=== PATIENT | male | born 1995 | race American Indian/Alaskan Native ===

== ENCOUNTER 2016-11-30 09:06 | Observation (INO) | payer OTHER ==
[2016-11-30 09:10] VITALS: BP 150/71; PULSE 75; TEMP 97; O2SAT 100; BMI 19.5
[2016-11-30 09:22] VITALS: RESP 18
--- NOTE | 2016-11-30 09:40 | ED PDOC ---
HPI: General Adult Time Seen by Provider: 11/30/16 09:37 Chief Complaint (Nursing): Abdominal Pain Chief Complaint (Provider): epigastric pain History Per: Patient History/Exam Limitations: no limitations Additional Complaint(s): 21yo male with hx of GERD, noncompliant with meds, complaining of epigastric abdominal pain and vomiting that started last night. He reports that he has had similar episodes in the past with negative endoscopy by outpatient GI. Patient states that this episode began with abdominal pain and then he started to vomit. Denies diarrhea/constipation, urinary symptoms, testicular pain, back pain. Past Medical History Reviewed: Historical Data, Nursing Documentation, Vital Signs Vital Signs: Last Vital Signs Temp 97 F L 11/30/16 09:19 Pulse 75 11/30/16 09:19 Resp 18 11/30/16 09:19 BP 150/71 11/30/16 09:19 Pulse Ox 100 11/30/16 14:28 - Medical History PMH: GERD - Surgical History Surgical History: No Surg Hx - Family History Family History: States: Unknown Family Hx - Social History Drugs: Denies - Immunization History Hx Tetanus Toxoid Vaccination: No Hx Influenza Vaccination: No Hx Pneumococcal Vaccination: No - Home Medications Home Medications: Ambulatory Orders Medication Instructions Recorded Ondansetron ODT [Zofran ODT] 4 mg PO Q12 #10 odt 06/27/16 Ciprofloxacin HCl [Cipro] 500 mg PO BID #0 tablet 06/30/16 Metronidazole [Flagyl] 500 mg PO Q8 #0 tablet 06/30/16 Famotidine [Pepcid] 20 mg PO DAILY #20 tab 07/18/16 Dicyclomine [Bentyl] 20 mg PO QID #20 tab 07/19/16 - Allergies Allergies/Adverse Reactions: Allergies Allergy/AdvReac Type Severity Reaction Status Date / Time No Known Allergies Allergy Verified 11/30/16 09:19 Review of Systems ROS Statement: Except As Marked, All Systems Reviewed And Found Negative Constitutional: Negative for: Fever, Chills Cardiovascular: Negative for: Chest Pain, Palpitations, Paroxysmal Noc. Dyspnea , Edema Respiratory: Negative for: Cough, Shortness of Breath, SOB with Exertion, Wheezing Gastrointestinal: Positive for: Nausea, Vomiting, Abdominal Pain. Negative for : Diarrhea, Constipation Genitourinary Male: Negative for: Dysuria, Frequency, Hematuria Musculoskeletal: Negative for: Neck Pain, Shoulder Pain, Back Pain Physical Exam - Reviewed Nursing Documentation Reviewed: Yes Vital Signs Reviewed: Yes - Physical Exam Appears: Positive for: Well, Non-toxic, No Acute Distress Head Exam: Positive for: ATRAUMATIC, NORMAL INSPECTION, NORMOCEPHALIC Skin: Positive for: Warm, Dry Eye Exam: Positive for: EOMI, PERRL ENT: Positive for: Other (moist mucous membranes). Negative for: Pharyngeal Erythema, Tonsillar Exudate Cardiovascular/Chest: Positive for: Regular Rate, Rhythm Respiratory: Positive for: Normal Breath Sounds. Negative for: Rales, Rhonchi, Wheezing Gastrointestinal/Abdominal: Positive for: Soft, Tenderness (scant epigastric tenderness). Negative for: Guarding, Rebound Back: Negative for: L CVA Tenderness, R CVA Tenderness Extremity: Positive for: Normal ROM Neurologic/Psych: Positive for: Alert, Oriented - Laboratory Results Result Diagrams: 11/30/16 10:35 11/30/16 10:35 - ECG O2 Sat by Pulse Oximetry: 100 (RA) Pulse Ox Interpretation: Normal Medical Decision Making Medical Decision Makin: Labs, pepcid, zofran, IV fluids ordered 11:55 Labs grossly normal, except for phosphorous. Replacement ordered. Patient continues to have additional episodes of vomiting. Additional anti-emetic ordered. P:CT. 3:00PM Will sign out to Dr. Mckeon to follow-up CT and reevaluate Disposition - Clinical Impression Clinical Impression: Abdominal discomfort - Disposition Disposition Time: 15:00 Condition: FAIR Additional Comments - Additional Comments Additional Comments: Scribe Attestation: Documented by Alec Guerrero acting as a scribe for Jennifer Devries MD. Scribe Attestation: All medical record entries made by the Scribe were at my direction and personally dictated by me. I have reviewed the chart and agree that the record accurately reflects my personal performance of the history, physical exam, medical decision making, and the department course for this patient. I have also personally directed, reviewed, and agree with the discharge instructions and disposition.
[2016-11-30] MEDS ORDERED: Iohexol 240 (50 ml) PO STA (10:05)
[2016-11-30] MEDS ORDERED: Iohexol 240 (50 ml) ONE (10:36)
[2016-11-30 10:49] LABS: BASO # 0.1 K/uL (0.0-0.2); BASO % 0.6 % (0.0-2.0); EOS # 0.1 K/uL (0.0-0.7); EOS % 0.9 % (0.0-4.0); HEMATOCRIT 49.9 % (35.0-51.0); LYMPH # 1.6 K/uL (1.0-4.3); MEAN CELL VOLUME 91.5 fl (80.0-94.0); MEAN CORPUSCULAR HEMOGLOBIN 29.9 pg (27.0-31.0); MEAN CORPUSCULAR HGB CONC 32.7 g/dL (33.0-37.0); MEAN PLATELET VOLUME 7.1 fl (7.2-11.7); MONO # 0.6 K/uL (0.0-0.8); MONO % 6.3 % (0.0-10.0); NEUT # 6.5 K/uL (1.8-7.0); NEUT % 74.2 % (50.0-75.0); NRBC % 0.1 % (0.0-0.0); RED CELL DISTRIBUTION WIDTH 13.1 % (11.5-14.5); WHITE BLOOD COUNT 8.8 K/uL (4.8-10.8)
[2016-11-30 10:56] LABS: ALB/GLOB RATIO 1.2 (1.0-2.1); ALKALINE PHOSPHATASE 67 U/L (38-126); ALT/SGPT 19 U/L (21-72); AST/SGOT 30 U/L (17-59); BILIRUBIN,TOTAL 1.3 mg/dl (0.2-1.3); BLOOD UREA NITROGEN 8 mg/dl (9-20); CARBON DIOXIDE 24 mmol/L (22-30); CHLORIDE 106 mmol/L (98-107); GFR AFRICAN-AMERICAN > 60; GLUCOSE,RANDOM 92 mg/dL (75-110); LIPASE 63 U/L (23-300); MAGNESIUM 2.2 MG/DL (1.6-2.3); PHOSPHOROUS 1.5 mg/dl (2.5-4.5); SODIUM 147 mmol/l (132-148); TOTAL PROTEIN 8.2 G/DL (6.3-8.2)
[2016-11-30] MEDS ORDERED: Potassium & Sodium Phosphate PO STA (11:33)
--- NOTE | 2016-11-30 15:05 | ED PDOC ---
- Laboratory Results Result Diagrams: 11/30/16 10:35 11/30/16 10:35 - ECG O2 Sat by Pulse Oximetry: 100 (RA) Pulse Ox Interpretation: Normal Medical Decision Making Medical Decision Makin signed over to me by Beth Mckeon MD pending CT. Disposition Counseled Patient/Family Regarding: Studies Performed, Diagnosis, Need For Followup - Clinical Impression Clinical Impression: Abdominal discomfort, Colitis - POA Present On Arrival: None - Disposition Disposition: Routine/Home Disposition Time: 17:51 Condition: IMPROVED ED OBSERVATION Date of observation admission: 11/30/16 Time of observation admission: 15:00 - Observation admission statement Patient is being placed in observation because:: pending CT - Progress Note Progress Note: 11/30/16 17:42 CT-abdomen results reviewed PROCEDURE: CT Abdomen and Pelvis with contrast HISTORY: epigastric pain COMPARISON: None. TECHNIQUE: Contrast dose: 90 cc of Omnipaque 300 Radiation dose: Total exam DLP = 289 mGy-cm. This CT exam was performed using one or more of the following dose reduction techniques: Automated exposure control, adjustment of the mA and/or kV according to patient size, and/or use of iterative reconstruction technique. FINDINGS: LOWER THORAX: Unremarkable. LIVER: Unremarkable. No gross lesion or ductal dilatation. GALLBLADDER AND BILE DUCTS: Unremarkable. PANCREAS: Unremarkable. No gross lesion or ductal dilatation. SPLEEN: Unremarkable. ADRENALS: Unremarkable. No mass. KIDNEYS AND URETERS: Unremarkable. No hydronephrosis. No solid mass. VASCULATURE: Unremarkable. No aortic aneurysm. BOWEL: There is mural thickening throughout the colon consistent with colitis. APPENDIX: Normal appendix. PERITONEUM: Unremarkable. No free fluid. No free air. LYMPH NODES: Unremarkable. No enlarged lymph nodes. BLADDER: Unremarkable. REPRODUCTIVE: Unremarkable. BONES: No acute fracture. OTHER FINDINGS: None. IMPRESSION: Mural thickening throughout the colon consistent with colitis. Discussed results with patient, all questions answered. pt aware of CT results pt tolerated PO Patient will be discharged with antibiotics cipro flagyl and zofran prn nausea and follow up with GI specialist 11/30/16 22:24 Additional Comments - Additional Comments Additional Comments: Scribe Attestation: Documented by Alec Guerrero acting as a scribe for Beth Mckeon MD. Scribe Attestation: All medical record entries made by the Scribe were at my direction and personally dictated by me. I have reviewed the chart and agree that the record accurately reflects my personal performance of the history, physical exam, medical decision making, and the department course for this patient. I have also personally directed, reviewed, and agree with the discharge instructions and disposition.
[2016-11-30] MEDS ORDERED: Sodium Chloride 0.9% 50 ML IV ONE (16:27)
[2016-11-30] MEDS ORDERED: Iohexol 300 100 ML IJ ONE (16:27)
--- NOTE | 2016-11-30 17:26 | CT ---
PROCEDURE: CT Abdomen and Pelvis with contrast HISTORY: epigastric pain COMPARISON: None. TECHNIQUE: Contrast dose: 90 cc of Omnipaque 300 Radiation dose: Total exam DLP = 289 mGy-cm. This CT exam was performed using one or more of the following dose reduction techniques: Automated exposure control, adjustment of the mA and/or kV according to patient size, and/or use of iterative reconstruction technique. FINDINGS: LOWER THORAX: Unremarkable. LIVER: Unremarkable. No gross lesion or ductal dilatation. GALLBLADDER AND BILE DUCTS: Unremarkable. PANCREAS: Unremarkable. No gross lesion or ductal dilatation. SPLEEN: Unremarkable. ADRENALS: Unremarkable. No mass. KIDNEYS AND URETERS: Unremarkable. No hydronephrosis. No solid mass. VASCULATURE: Unremarkable. No aortic aneurysm. BOWEL: There is mural thickening throughout the colon consistent with colitis. APPENDIX: Normal appendix. PERITONEUM: Unremarkable. No free fluid. No free air. LYMPH NODES: Unremarkable. No enlarged lymph nodes. BLADDER: Unremarkable. REPRODUCTIVE: Unremarkable. BONES: No acute fracture. OTHER FINDINGS: None. IMPRESSION: Mural thickening throughout the colon consistent with colitis.
[2016-11-30] MEDS ORDERED: Sodium Chloride 0.9% 1,000 ML IV STA (18:04)
== END 2016-11-30 17:48 | disposition home or self-care (01) ==
LOC: H.ER 09:06 → H.EROBSV 15:00
PROVIDERS: ADMIT Emergency Medicine; ATTEND Emergency Medicine
DX: K52.9 Noninfective gastroenteritis and colitis, unspecified (principal)

== ENCOUNTER 2017-05-09 09:35 | Observation (INO) | payer SELFPAY ==
[2017-05-09 09:36] VITALS: BMI 19.5
[2017-05-09 09:55] VITALS: RESP 16
[2017-05-09] MEDS ORDERED: Alum-Mag Hydrox-Simethicone Susp (30 mL) PO ONE (10:48)
[2017-05-09] MEDS ORDERED: Sodium Chloride 0.9% 1,000 ML IV STA (10:48)
[2017-05-09] MEDS ORDERED: Lidocaine 1% Inj (20ml) IJ ONE (10:48)
[2017-05-09] MEDS ORDERED: Alum-Mag Hydrox-Simethicone Susp (30 mL) ONE (11:06)
[2017-05-09 11:24] LABS: BASO % 0.6 % (0.0-2.0); EOS # 0.1 K/uL (0.0-0.7); EOS % 2.1 % (0.0-4.0); LYMPH % 31.5 % (20.0-40.0); MEAN CELL VOLUME 87.5 fl (80.0-94.0); MEAN CORPUSCULAR HEMOGLOBIN 29.9 pg (27.0-31.0); MEAN CORPUSCULAR HGB CONC 34.1 g/dL (33.0-37.0); MEAN PLATELET VOLUME 6.6 fl (7.2-11.7); MONO # 0.4 K/uL (0.0-0.8); MONO % 5.8 % (0.0-10.0); NEUT # 3.9 K/uL (1.8-7.0); NRBC % 0.1 % (0.0-0.0); RED CELL DISTRIBUTION WIDTH 13.1 % (11.5-14.5); WHITE BLOOD COUNT 6.5 K/uL (4.8-10.8)
--- NOTE | 2017-05-09 11:25 | ED PDOC ---
HPI: General Adult Time Seen by Provider: 05/09/17 10:07 Chief Complaint (Nursing): Abdominal Pain History Per: Patient Additional Complaint(s): Pt. states for the past 4 days he's had epigastric pain radiating to his chest. Reports a long hx of gastritis and has had an endoscopy in February 2017 which confirmed the gastritis. Has been taking Pepcid and Zofran without relief. Reports symptoms are only present after eating. Denies SOB, palpitations, fever , cough, hematemesis, BRBPR, hematochezia. Last BM was today was normal. Past Medical History Reviewed: Historical Data, Nursing Documentation, Vital Signs Vital Signs: Last Vital Signs Temp 97.0 F L 05/09/17 09:52 Pulse 75 05/09/17 09:52 Resp 16 05/09/17 09:52 BP 137/75 05/09/17 09:52 Pulse Ox 100 05/09/17 11:26 - Medical History PMH: Gastritis, GERD Denies: Atrial Fibrillation, Cardia Arrhythmia, CHF, Crohn's Disease, Diverticulitis, Gall Bladder Disease, HTN, Hypercholesterolemia, Mitral Valve Prolapse, Pancreatitis, Peripheral Edema, Chronic Kidney Disease - Surgical History Surgical History: Endoscopy Denies: Pacemaker - Family History Family History: States: No Known Family Hx - Immunization History Hx Tetanus Toxoid Vaccination: No Hx Influenza Vaccination: No Hx Pneumococcal Vaccination: No - Home Medications Home Medications: Ambulatory Orders Medication Instructions Recorded Sucralfate [Carafate Oral Susp] 1 gm PO ACHS #120 udc 04/11/17 Omeprazole Magnesium [Prilosec Otc] 20 mg PO DAILY #30 tablet. 04/12/17 Famotidine [Pepcid] 20 mg PO BID #30 tab 05/05/17 Metoclopramide [Reglan] 1 tab PO TID PRN #15 tab 05/05/17 Ondansetron ODT [Zofran ODT] 4 mg PO TID #30 odt 05/09/17 Ranitidine HCl [Zantac] 150 mg PO DAILY PRN #30 tablet 05/09/17 - Allergies Allergies/Adverse Reactions: Allergies Allergy/AdvReac Type Severity Reaction Status Date / Time No Known Allergies Allergy Verified 05/05/17 15:24 Review of Systems ROS Statement: Except As Marked, All Systems Reviewed And Found Negative Cardiovascular: Positive for: Chest Pain Gastrointestinal: Positive for: Nausea, Vomiting, Abdominal Pain Physical Exam - Reviewed Nursing Documentation Reviewed: Yes Vital Signs Reviewed: Yes - Physical Exam Appears: Positive for: Well, Non-toxic, No Acute Distress Head Exam: Positive for: ATRAUMATIC, NORMAL INSPECTION, NORMOCEPHALIC Skin: Positive for: Normal Color, Warm. Negative for: Rash Eye Exam: Positive for: EOMI, Normal appearance, PERRL ENT: Positive for: Normal ENT Inspection Neck: Positive for: Normal, Painless ROM Cardiovascular/Chest: Positive for: Regular Rate, Rhythm Respiratory: Positive for: CNT, Normal Breath Sounds Gastrointestinal/Abdominal: Positive for: Normal Exam, Bowel Sounds, Soft, Tenderness (minimal epgiastric pain) Back: Positive for: Normal Inspection. Negative for: L CVA Tenderness, R CVA Tenderness Extremity: Positive for: Normal ROM Neurologic/Psych: Positive for: Alert, Oriented - Laboratory Results Result Diagrams: 05/09/17 11:15 05/09/17 11:15 - ECG O2 Sat by Pulse Oximetry: 100 - Progress ED Course And Treament: Labs ordered. US ordered. Pepcid 20mg IV, maalox 30ml PO, viscous lidocaine 15ml PO ordered. ED OBSERVATION Discharge: Yes Date of observation admission: 05/09/17 Time of observation admission: 10:48 - Observation admission statement Patient is being placed in observation because:: abdominal pain - Progress Note Progress Note: 05/09/17 12:20 No distress. Resting comfortably. 05/09/17 14:20 Abd US: No significant or acute findings to account for/ related to the clinical presentation. CXR: NAD On re-evaluation, pt. in no distress. Reports moderate improvement in symptoms. Abd soft and non-tender. Pt. informed that [facility] will contact to arrange GI f/u. Disposition - Clinical Impression Clinical Impression: Gastritis - Patient ED Disposition Is Patient to be Admitted: No - Disposition Disposition: Routine/Home Disposition Time: 14:29 Condition: IMPROVED Prescriptions: Ondansetron ODT [Zofran ODT] 4 mg PO TID #30 odt Ranitidine HCl [Zantac] 150 mg PO DAILY PRN #30 tablet PRN Reason: abdominal pain Instructions: Gastritis (ED) Forms: [place] (Japanese) Print Language: TELUGU
[2017-05-09 11:35] LABS: ALB/GLOB RATIO 1.5 (1.0-2.1); ALKALINE PHOSPHATASE 66 U/L (38-126); ALT/SGPT 34 U/L (21-72); AST/SGOT 25 U/L (17-59); BILIRUBIN,TOTAL 1.1 mg/dl (0.2-1.3); BLOOD UREA NITROGEN 9 mg/dl (9-20); CALCIUM 10.1 mg/dL (8.4-10.2); CARBON DIOXIDE 26 mmol/L (22-30); CHLORIDE 102 mmol/L (98-107); GFR AFRICAN-AMERICAN > 60; GLUCOSE,RANDOM 102 mg/dL (75-110); LIPASE 82 U/L (23-300); SODIUM 142 mmol/l (132-148); TOTAL PROTEIN 8.1 G/DL (6.3-8.2)
[2017-05-09 11:37] LABS: POTASSIUM 3.8 MMOL/L (3.6-5.0)
--- NOTE | 2017-05-09 12:36 | CARD ---
APPROVED REPORT EKG Measurement Heart [id number] <Conclusion> Sinus bradycardia Otherwise normal ECG
[2017-05-09 12:39] LABS: RBC URINE 2 /hpf (0-3); URINE BILIRUBIN NEGATIVE (NEGATIVE); URINE BLOOD NEGATIVE (NEGATIVE); URINE COLOR STRAW (YELLOW); URINE GLUCOSE (UA) NEG (Normal); URINE KETONE NEGATIVE (NEGATIVE); URINE LEUKOCYTE ESTERASE NEG Leu/uL (Negative); URINE PROTEIN NEGATIVE (NEGATIVE); URINE UROBILINOGEN 0.2-1.0 mg/dL (0.2-1.0); WBC URINE < 1 /hpf (0-5)
--- NOTE | 2017-05-09 13:41 | US ---
HISTORY: abdominal pain common nausea and vomiting 1 year duration. COMPARISON: None. TECHNIQUE: Sonographic evaluation of the abdomen. FINDINGS: LIVER: Measures 15.8 cm. Patent portal vein. Portal venous flow: Hepatopetal. Unremarkeable echogenicity of the liver parenchyma. No mass. No intrahepatic bile duct dilatation. GALLBLADDER: Unremarkable. No gallstones. COMMON BILE DUCT: Measures 3.9 mm. No stones. No dilatation. PANCREAS: Unremarkable as visualized. No mass. No ductal dilatation. RIGHT KIDNEY: Measures 3.7 x 11.4cm. Normal echogenicity. No calculus, mass, or hydronephrosis. LEFT KIDNEY: Measures 4.2 x 10.3cm. Normal echogenicity. No calculus, mass, or hydronephrosis. SPLEEN: Normal in size and contour. No mass. AORTA: No aneurysmal dilatation. IVC: Unremarkable. OTHER FINDINGS: None. IMPRESSION: No significant or acute findings to account for/ related to the clinical presentation.
--- NOTE | 2017-05-09 13:53 | RAD ---
HISTORY: chest pain COMPARISON: No prior. FINDINGS: LUNGS: No active pulmonary disease. PLEURA: No significant pleural effusion identified, no pneumothorax apparent. CARDIOVASCULAR: Normal. OSSEOUS STRUCTURES: No significant abnormalities. VISUALIZED UPPER ABDOMEN: Normal. OTHER FINDINGS: None. IMPRESSION: No active disease.
[2017-05-09 14:37] VITALS: BP 128/72; PULSE 71; TEMP 97.1; O2SAT 99
== END 2017-05-09 14:38 | disposition home or self-care (01) ==
LOC: H.ER 09:35 → H.EROBSV 10:48
PROVIDERS: ADMIT Emergency Medicine; ATTEND Emergency Medicine
DX: K29.70 Gastritis, unspecified, without bleeding (principal); K21.9 Gastro-esophageal reflux disease without esophagitis
CPT/HCPCS: 71010; 76700; 80053; 81003; 83690; 85025; 93005; 96374; 96375; 99282; G0378; J2405; J7040